=== PATIENT | male | born 1965 | race Asian ===

== ENCOUNTER 2017-05-17 10:05 | Outpatient (CLI) | payer MEDICARE ==
[2017-05-17 11:14] LABS: INR 1.8 (0.9-1.1)
--- NOTE | 2017-05-17 11:53 | Pre-Procedure Note/Attestation ---
Pre-Procedure Note/Attestation Complete Prior to Procedure Planned Procedure: not applicable Procedure Narrative: US guided paracentesis Indications for Procedure Pre-Operative Diagnosis: Ascites Attestation I attest that I discussed the nature of the procedure; its benefits; risks and complications; and alternatives (and the risks and benefits of such alternatives ), prior to the procedure, with the patient (or the patient's legal footwear sales representative). I attest that, if there was a reasonable possibility of needing a blood transfusion, the patient (or the patient's legal footwear sales representative) was given the [facility] standardized written summary, pursuant to the [employer] Blood Safety Act ([place] [facility] and Safety Code # 1645, as amended). I attest that I re-evaluated the patient just prior to the surgery and that there has been no change in the patient's H&P, except as documented below: CHIDI STRAUSS M.D. May 17, 2017 11:53
--- NOTE | 2017-05-17 11:54 | Brief Operative Note ---
Immediate Post Operative Note Operative Note Pre-op Diagnosis: Ascites Procedure: US guided paracentesis Post-op Diagnosis: same Post-op Diagnosis: same as pre-op Findings: consistent w/pre-op dx studies Surgeon: Jorge STRAUSS Anesthesia: local Specimen: none Complications: none Condition: stable Fluids: none Implant(s) used?: No CHIDI STRAUSS M.D. May 17, 2017 11:54
--- NOTE | 2017-05-17 14:55 | Diagnostic Imaging Report ---
Indications: Ascites Technique: Ultrasound used to localize optimal puncture site. Sterile prepping and draping I lower quadrant. Local anesthesia with 1% lidocaine. Under real-time ultrasound guidance, puncture peritoneal space using paracentesis needle. Stylet removed. Catheter placed to vacuum bottle suction. Total 4.2 liters of clear yellow fluid aspirated. Patient tolerated procedure well, without immediate complication. Findings: Followup sonography demonstrates complete resolution of peritoneal fluid. Impression: Successful ultrasound-guided paracentesis, yielding 4.2 liters of fluid
== END 2017-05-17 12:05 | disposition home or self-care (01) ==
LOC: ULS 10:05
DX: K70.31 Alcoholic cirrhosis of liver with ascites (principal)
CPT/HCPCS: 36415; 76942; 85610; 85730